=== PATIENT | female | born 1950 | race Caucasian/White ===

== ENCOUNTER 2017-07-02 23:57 | Inpatient (IN) | payer MEDICARE, OTHER ==
[~2017-07-02] VITALS: Ht 160 cm; Wt 90.9 kg
[~2017-07-02 23:57] MED LIST: AUGMENTIN875TAB PO; DIFLUCAN150 MG PO; EFFEXOR XR75 MG PO
[2017-07-03] VITALS (14 sets, daily range): BP systolic 111–161; BP diastolic 52–83
--- NOTE | 2017-07-03 | NUR ---
PT IMMDIATELY TO RM 12 VIA WHEELCHAIR.
[2017-07-03 00:38] LABS: HEMATOCRIT 36.7 % (37.0-47.0); HEMOGLOBIN 12.4 g/dl (12.0-16.0); IMMATURE GRANULOCYTES 0.1 % (0.0-1.0); MEAN CELL VOLUME 90.2 fL CALC (80.0-100.0); MEAN CORPUSCULAR HGB 30.5 pG CALC (26.0-32.0); MEAN CORPUSCULAR HGB CONC 33.8 g/L CALC (32.0-36.0); NEUT# 3.61 thou/uL (2.00-7.15); RED BLOOD COUNT 4.07 mill/uL (4.20-5.60); RED CELL DISTRI WIDTH 12.9 % (11.5-15.5)
[2017-07-03 00:50] LABS: ALKALINE PHOSPHATASE 77 u/l (38-126); AMYLASE 58 u/l (30-110); ANION GAP 13 (6-22 (CALC)); BILIRUBIN, TOTAL 0.4 mg/dL (0.0-1.4); BUN 15 mg/dL (8-23); BUN/CREATININE RATIO 22 (12-20 (CALC)); CARBON DIOXIDE 24 mmol/l (22-30); CHLORIDE 109 mmol/l (95-108); CREATININE 0.7 mg/dL (0.5-1.0); GFR > 60 ML/MIN (>=60 (CALC)); GFR FOR AFR.AMER. > 60 ML/MIN (>=60 (CALC)); LIPASE 148 u/l (23-300); POTASSIUM 3.7 mmol/l (3.5-5.1); SGOT/AST 22 u/l (9-36); SGPT/ALT 26 u/l (11-66); SODIUM 143 mmol/l (137-146); TOTAL PROTEIN 6.9 g/dL (6.3-8.2)
[2017-07-03 01:02] LABS: MYOGLOBIN 19 ng/mL (0 - 62)
[2017-07-03 01:08] LABS: ALBUMIN 4.2 g/dL (3.2-5.0)
--- NOTE | 2017-07-03 01:52 | NUR ---
PT C/O PAIN IN UPPER ABD "LIKE A BAND" ABD IS SOFT AND NON TENDER. PWD. PT REMAINS ANXIOUS.
--- NOTE | 2017-07-03 02:53 | NUR ---
TO CT VIA STRETCHER
--- NOTE | 2017-07-03 04:01 | NUR ---
rEPORT TO CLINT IN ICU. PT RESTING
--- NOTE | 2017-07-03 04:15 | NUR ---
TO ROOM VIA STRETCHER WITH MONITOR/O2//NITRO DRIP. PT RESTING QUIETLY. NO C/O.
--- NOTE | 2017-07-03 04:17 | NUR ---
67 yr old white female admitted icu7 per stretcher from er. denies chest pain @ present. o2 cont per nc. radiation monitor shows sinus rhythm pvcs. #20 lt hand ntg infusing @ 3cchr, ns infusing @ 20cchr. #18 lac saline lock. history obtained per pt & er record. oriented to room. fall precautions initiated.
--- NOTE | 2017-07-03 05:15 | NUR ---
lab here. blood drawn.
--- NOTE | 2017-07-03 07:30 | NUR ---
SETUP ASSISTANCE PROVIDED WITH OWEN BRISCOE
--- NOTE | 2017-07-03 07:35 | NUR ---
NITRO TITRATED OFF
--- NOTE | 2017-07-03 08:15 | NUR ---
PT ASSISTED TO THE RESTROOM, PT AMBULATED WITH A STEADY GAIT, REMINDED TO CALL FOR ASSISTANCE, CALL SHERIDAN WITHIN REACH
--- NOTE | 2017-07-03 09:35 | NUR ---
DR SIGALA AT BEDSIDE DISCUSSING PLAN OF CARE
--- NOTE | 2017-07-03 10:05 | NUR ---
PT VERBALIZED SHE WAS HAVING L SHOULDER PAIN, PT STATED "MY HEART PROBLEMS ALWAYS START WITH ME HAVING PAIN IN MY L SHOULDER", MD MADE AWARE, ORDERS GIVEN
--- NOTE | 2017-07-03 10:15 | NUR ---
CALL PLACED TO DR DUMONT OFFICE FOR RECORDS, SPOKE WITH YEE, WILL SEND RECORDS
--- NOTE | 2017-07-03 10:45 | NUR ---
VISITORS AT BEDSIDE
--- NOTE | 2017-07-03 11:10 | NUR ---
PT ASSISTED TO THE BATHROOM AND BACK TO BED, PT AMBULATED WITH A STRONG STEADY GAIT, PT REMINDED TO CALL FOR ASSISTANCE, CALL SHERIDAN WITHIN REACH
--- NOTE | 2017-07-03 11:35 | NUR ---
SETUP ASSISTANCE PROVIDED WITH LUNCH
--- NOTE | 2017-07-03 12:10 | NUR ---
PT SITTING UP IN BED TALKING TO FAMILY WHO ARE BEDSIDE, PT DENIES ANY PAIN AT THIS TIME, PT TOLERATED LUNCH WELL, REMINDED TO CALL FOR ASSISTANCE, CALL SHERIDAN WITHIN REACH
--- NOTE | 2017-07-03 14:35 | NUR ---
PT LAYING IN BE RESTING WITH EYES CLOSED, AROUSES EASILY TO VERBAL STIMULI, PT DENIES ANY PAIN AT THIS TIME, REMINDED TO CALL FOR ASSISTANCE, CALL SHERIDAN WITHIN REACH
--- NOTE | 2017-07-03 17:15 | NUR ---
DR BLOOD AT BEDSIDE DISCUSSING PLAN OF CARE
--- NOTE | 2017-07-03 18:10 | NUR ---
PT SITTING UP IN BED TALKING TO FAMILY, PT EDUCATED ON TX PROCESS, PT VERBALIZED UNDERSTANDING, TOLERATED PM MEAL WELL, PT REMINDED TO CALL FOR ASSISTANCE, CALL SHERIDAN WITHIN REACH
--- NOTE | 2017-07-03 18:32 | NUR ---
MYRA FROM [facility] CALL FOR REQUESTING FACESHEET, FACESHEET FAXED TO [phone]
--- NOTE | 2017-07-03 19:15 | NUR ---
awake. multi family members @ bedside. denies pain. cardiac monitor technician shows sinus rhythm pvcs. #18 lac saline lock. po fluids taken well. amb her to br. voided well. fall precautions cont. spoke @ length to pt & family regarding impending transfer. all questions snawered.
--- NOTE | 2017-07-03 21:00 | NUR ---
all family members have gone. no distress.
--- NOTE | 2017-07-03 23:05 | NUR ---
[facility] agreement signed & refaxed to [facility].
--- NOTE | 2017-07-03 23:30 | NUR ---
florence from [facility] transfer center called this abstract writer. bed assignment rec'd. kassidy @ [facility] notified of need for transport. will be here approx 1 1/2 hrs. pt notified. consent to transfer signed.
[2017-07-04 00:01] VITALS: BP 135/87
--- NOTE | 2017-07-04 00:50 | NUR ---
[facility] here. report given.
--- NOTE | 2017-07-04 01:05 | NUR ---
[facility] left. report called to richie lam @ [phone]. to be transferred to [facility] b.
== END 2017-07-04 01:05 | disposition short-term general hospital (02) | DRG 313 ==
LOC: ED 23:57 → ED-I 07-03 01:08 → ED 07-03 01:38 → ICU 07-03 01:39
PROVIDERS: Emergency Medicine; Internal Medicine; ADMIT Internal Medicine; ATTEND Internal Medicine
DX: R07.9 Chest pain, unspecified (principal); E66.9 Obesity, unspecified; I49.3 Ventricular premature depolarization; R00.1 Bradycardia, unspecified; R53.1 Weakness; F32.9 Major depressive disorder, single episode, unspecified; I10 Essential (primary) hypertension; K21.9 Gastro-esophageal reflux disease without esophagitis; M19.90 Unspecified osteoarthritis, unspecified site; Z82.49 Family history of ischemic heart disease and other diseases of the circulatory system; Z68.35 Body mass index [BMI] 35.0-35.9, adult
CPT/HCPCS: J2060

== ENCOUNTER 2022-06-12 09:07 | Emergency (ER) | payer MEDICARE, OTHER ==
[~2022-06-12] VITALS: Ht 160 cm; Wt 100.0 kg
[2022-06-12 09:29] VITALS: BP 147/63
[2022-06-12] MEDS ORDERED: AMLODIPINE BESY10 MG PO (09:38)
[2022-06-12] MEDS ORDERED: ELIQUIS5 MG PO (09:38)
[2022-06-12 09:46] VITALS: BP 152/63
[2022-06-12 09:56] LABS: URINE BILIRUBIN - DIPSTICK NEGATIVE (NEGATIVE); URINE BLOOD DIPSTICK SMALL (NEGATIVE); URINE COLOR YELLOW; URINE GLUCOSE - DIPSTICK NEGATIVE (NEGATIVE); URINE KETONE NEGATIVE (NEGATIVE); URINE PROTEIN - DIPSTICK NEGATIVE (NEG-TRACE); URINE UROBILINOGEN - DIPSTICK 0.2 E.U./dL (0.2)
[2022-06-12 09:58] LABS: URINE LEUK ESTERASE SMALL (NEGATIVE); URINE NITRITE - DIPSTICK NEGATIVE (Negative)
[2022-06-12 10:05] LABS: URINE BACTERIA FEW hpf; URINE RBC 0-2 RBC/hpf (0-5); URINE SQUAMOUS EPITHELIAL CELL FEW EPI/hpf (0-FEW)
[2022-06-12 10:42] LABS: BASO% 0.4 % (0-3); EOS% 0.8 % (0-8); HEMATOCRIT 40.3 % (37.0-47.0); HEMOGLOBIN 12.9 g/dl (12.0-16.0); IMMATURE GRANULOCYTES 0.2 % (0.0-5.0); MEAN CELL VOLUME 91.2 fL CALC (80.0-100.0); MEAN CORPUSCULAR HGB 29.2 pG CALC (26.0-32.0); MONO% 5.4 % (2-13); NEUT# 6.95 thou/uL (2.00-7.15); NEUT% 65.2 % (42-76); RED BLOOD COUNT 4.42 mill/uL (4.20-5.60); RED CELL DISTRI WIDTH 13.4 % (11.5-15.5)
[2022-06-12 10:56] LABS: ALBUMIN 4.5 g/dL (3.2-5.0); ALKALINE PHOSPHATASE 78 u/l (38-126); ANION GAP 11 (6-22 (CALC)); BILIRUBIN, TOTAL 0.5 mg/dL (0.02-1.3); BUN 14 mg/dL (8-23); BUN/CREATININE RATIO 22 (12-20 (CALC)); CARBON DIOXIDE 26 mmol/l (22-30); CHLORIDE 107 mmol/l (95-108); CREATININE 0.6 mg/dL (0.5-1.0); GFR FOR AFR.AMER. > 60 ML/MIN (>=60 (CALC)); GFR OTHER RACES > 60 ML/MIN (>=60 (CALC)); POTASSIUM 3.8 mmol/l (3.5-5.1); SGOT/AST 27 u/l (9-36); SODIUM 140 mmol/l (137-146); TOTAL PROTEIN 7.3 g/dL (6.3-8.2)
[2022-06-12] MEDS ORDERED: CIPROFLOXACN500 MG PO ×2 (11:27→11:43)
[2022-06-12] MEDS ORDERED: ZOFRAN4 MG/TAB PO ×2 (11:27→11:43)
[2022-06-12 11:37] VITALS: BP 152/63
== END 2022-06-12 11:44 | disposition home or self-care (01) ==
LOC: ED 09:07
PROVIDERS: Family Medicine
DX: N39.0 Urinary tract infection, site not specified (principal); B96.20 Unspecified Escherichia coli [E. coli] as the cause of diseases classified elsewhere; K21.9 Gastro-esophageal reflux disease without esophagitis

== ENCOUNTER 2023-06-25 01:35 | Emergency (ER) | payer MEDICARE, OTHER ==
[~2023-06-25] VITALS: Ht 160 cm; Wt 92.1 kg
[~2023-06-25 01:35] MED LIST changes: +AMLODIPINE BESY10 MG PO; +CIPROFLOXACN500 MG PO; +ELIQUIS5 MG PO; +ZOFRAN4 MG/TAB PO
[2023-06-25 01:49] VITALS: BP 147/56
[2023-06-25 02:01] VITALS: BP 143/123
[2023-06-25 02:04] VITALS: BP 167/66
[2023-06-25] MEDS ORDERED: KETOROLAC TROMETHAMINE 30 MG/ML SDV IV ONE (02:05)
[2023-06-25] MEDS ORDERED: ACETAMINOPHEN 500 MG TAB PO ONE (02:05)
[2023-06-25] MEDS ORDERED: ALUM & MAG HYDROX-SIMETHICONE 30 ML PO ONE (02:05)
[2023-06-25] MEDS ORDERED: ASPIRIN 81 MG/TAB PO ONE (02:05)
[2023-06-25] MEDS ORDERED: LIDOCAINE VISCOUS 2% 15 ML UDC PO ONE (02:05)
[2023-06-25 02:42] LABS: BASO% 0.5 % (0-3); EOS% 1.7 % (0-8); HEMATOCRIT 36.2 % (37.0-47.0); HEMOGLOBIN 11.9 g/dl (12.0-16.0); LYMPH% 46.2 % (15-41); MEAN CORPUSCULAR HGB 29.9 pG CALC (26.0-32.0); MEAN CORPUSCULAR HGB CONC 32.9 g/dL CAL (32.0-36.0); MONO% 7.4 % (2-13); NEUT# 3.42 thou/uL (2.00-7.15); NEUT% 44.2 % (42-76); RED BLOOD COUNT 3.98 mill/uL (4.20-5.60); RED CELL DISTRI WIDTH 13.4 % (11.5-15.5)
[2023-06-25 03:05] LABS: ALBUMIN 3.9 g/dL (3.2-5.0); ALKALINE PHOSPHATASE 69 u/l (38-126); ANION GAP 7 (6-22 (CALC)); BILIRUBIN, TOTAL 0.3 mg/dL (0.02-1.3); BUN 16 mg/dL (8-23); BUN/CREATININE RATIO 25 (12-20 (CALC)); CARBON DIOXIDE 26 mmol/l (22-30); CHLORIDE 107 mmol/l (95-108); CREATININE 0.7 mg/dL (0.5-1.0); GFR FOR AFR.AMER. > 60 ML/MIN (>=60 (CALC)); GFR OTHER RACES > 60 ML/MIN (>=60 (CALC)); LIPASE 153 u/l (23-300); POTASSIUM 3.7 mmol/l (3.5-5.1); SGOT/AST 27 u/l (9-36); SODIUM 136 mmol/l (137-146); TOTAL PROTEIN 6.6 g/dL (6.3-8.2)
[2023-06-25 03:06] LABS: ACT PARTIAL THROMBO TIME 23.9 SECONDS (20.0-32.5)
[2023-06-25 03:23] LABS: D-DIMER 0.3 mg/L (0.19-0.60)
[2023-06-25 03:31] VITALS: BP 143/64
[2023-06-25] MEDS ORDERED: TORADOL PO (03:43)
[2023-06-25 03:46] VITALS: BP 123/54
[2023-06-25 04:01] VITALS: BP 128/55
== END 2023-06-25 04:30 | disposition home or self-care (01) ==
LOC: ED 01:35
PROVIDERS: Family Medicine
DX: R07.9 Chest pain, unspecified (principal); K21.9 Gastro-esophageal reflux disease without esophagitis; Z86.711 Personal history of pulmonary embolism; Z79.01 Long term (current) use of anticoagulants; Z86.718 Personal history of other venous thrombosis and embolism